=== PATIENT | female | born 1980 | race Caucasian/White ===

== ENCOUNTER 2023-05-23 16:18 | Emergency (ER) | payer MEDICAID ==
[~2023-05-23] VITALS: Ht 165.1 cm; Wt 59.1 kg
[2023-05-23 18:28] LABS: HCG SERUM QL NEGATIVE
[2023-05-23 18:43] LABS: ALBUMIN 3.8 G/DL (3.4-5.0); ANION GAP 13 (8-16); BLOOD UREA NITROGEN 10 MG/DL (7-18); BUN/CREATININE RATIO 16.7 (10.0-20.0); CHLORIDE 101 MMOL/L (99-107); ETHANOL 281 MG/DL (<10); GLUCOSE 87 MG/DL (70-104); SALICYLATE 1.4 MG/DL (4.0-20.0); SODIUM 138 MMOL/L (135-145); TOTAL CARBON DIOXIDE 23.8 MMOL/L (24-32); eCRCL 112 ML/MIN; eGFR > 90 ML/MIN
[2023-05-23 18:52] LABS: ACETAMINOPHEN < 2.0 UG/ML (10-30)
[2023-05-23 18:53] VITALS: TEMP 98.4
[2023-05-23] MEDS: normal saline 1000ML IV soln IVB ONE (18:53)
[2023-05-23 19:30] LABS: BASOPHILS # (AUTO) 0.1 X10'3 (0-0.2); BASOPHILS % (AUTO) 0.6 % (0-1); EOSINOPHILS # (AUTO) 0.1 X10'3 (0-0.9); EOSINOPHILS % (AUTO) 0.7 % (0-6); HEMATOCRIT 38.6 % (35.0-45.0); HEMOGLOBIN 13.2 g/dl (12.0-16.0); LYMPHOCYTES # (AUTO) 2.3 X10'3 (1.1-4.8); LYMPHOCYTES % (AUTO) 24.2 % (21-51); MEAN CORPUSCULAR HEMOGLOBIN 33.2 PG (27.0-31.0); MEAN CORPUSCULAR HGB CONC 34.1 g/dL (33.0-36.5); MEAN CORPUSCULAR VOLUME 97.2 FL (78-98); MEAN PLATELET VOLUME 8.6 FL (7.4-10.4); MONOCYTES # (AUTO) 0.3 X10'3 (0-0.9); MONOCYTES % (AUTO) 3.5 % (2-12); NEUTROPHILS # (AUTO) 6.9 X10'3 (1.8-7.7); PLATELET COUNT 272 X10'3 (140-440); RED BLOOD COUNT 3.97 X10'6 (4.20-5.60); RED CELL DISTRIBUTION WIDTH 15.1 % (11.5-14.5); WHITE BLOOD COUNT 9.7 X10'3 (4.5-11.0)
[2023-05-23 23:34] VITALS: BP 110/59; PULSE 78; RESP 16; O2SAT 100
== END 2023-05-24 01:17 | disposition home or self-care (01) ==
LOC: ER 16:19
DX: F10.129 Alcohol abuse with intoxication, unspecified (principal); Y90.9 Presence of alcohol in blood, level not specified
CPT/HCPCS: 36415; 70450; 71045; 80048; 80320; 80329; 82140; 82948; 84484; 84703; 85025; 93005; 96360; 99285; J7030

== ENCOUNTER 2023-06-01 03:52 | Emergency (ER) | payer MEDICAID ==
[~2023-06-01] VITALS: Ht 157.5 cm; Wt 59.1 kg
[2023-06-01] MEDS: thiamine 100mg/ml 2ml inj. IV ONE (08:31)
[2023-06-01] MEDS: normal saline 1000ML IV soln IVB ONE (08:31)
[2023-06-01 08:39] LABS: ANION GAP 14 (8-16); BLOOD UREA NITROGEN 7 MG/DL (7-18); BUN/CREATININE RATIO 16.3 (10.0-20.0); CALCIUM 8.4 MG/DL (8.5-10.1); CHLORIDE 98 MMOL/L (99-107); CREATININE 0.43 MG/DL (0.40-0.90); ETHANOL < 10 MG/DL (<10); GLUCOSE 77 MG/DL (70-104); POTASSIUM 3.7 MMOL/L (3.5-5.1); SODIUM 135 MMOL/L (135-145); TOTAL CARBON DIOXIDE 23.2 MMOL/L (24-32); eCRCL 138 ML/MIN; eGFR > 90 ML/MIN
[2023-06-01 10:49] LABS: URINE HCG NEGATIVE (NEG)
[2023-06-01 11:13] LABS: URINE AMPHETAMINE SCREEN NEGATIVE (Neg); URINE BARBITUATE SCREEN NEGATIVE (Neg); URINE BENZODIAZEPINES SCREEN NEGATIVE (Neg); URINE CANNABINOID SCREEN NEGATIVE (Neg); URINE COCAINE SCREEN NEGATIVE (Neg); URINE METHADONE SCREEN NEGATIVE (Neg); URINE OPIATE SCREEN NEGATIVE (Neg); URINE PHENCYCLIDINE SCREEN NEGATIVE (Neg)
[2023-06-01 11:15] LABS: BASOPHILS % (AUTO) 0.3 % (0-1); EOSINOPHILS % (AUTO) 0.2 % (0-6); HEMATOCRIT 33.7 % (35.0-45.0); HEMOGLOBIN 11.5 g/dl (12.0-16.0); LYMPHOCYTES # (AUTO) 0.7 X10'3 (1.1-4.8); LYMPHOCYTES % (AUTO) 9.5 % (21-51); MEAN CORPUSCULAR HEMOGLOBIN 32.9 PG (27.0-31.0); MEAN CORPUSCULAR HGB CONC 34.2 g/dL (33.0-36.5); MEAN CORPUSCULAR VOLUME 96.3 FL (78-98); MONOCYTES # (AUTO) 0.4 X10'3 (0-0.9); MONOCYTES % (AUTO) 6.5 % (2-12); NEUTROPHILS # (AUTO) 5.7 X10'3 (1.8-7.7); NEUTROPHILS % (AUTO) 83.5 % (42-75); PLATELET COUNT 126 X10'3 (140-440); RED CELL DISTRIBUTION WIDTH 14.4 % (11.5-14.5); WHITE BLOOD COUNT 6.9 X10'3 (4.5-11.0)
[2023-06-01 18:32] LABS: BILIRUBIN,URINE NEGATIVE (Neg); CLARITY,URINE SLIGHTLY CLOUDY (Clear); COLOR,URINE YELLOW (Yellow); GLUCOSE, URINE NEGATIVE (Neg); KETONES,URINE 15 mg/dl (Neg); LEUKOCYTE ESTERASE ,URINE NEGATIVE (Neg); NITRITES, URINE NEGATIVE (Neg); OCCULT BLOOD,URINE LARGE (Neg); PH,URINE 6.5 (4.8-8.0); PROTEIN,URINE NEGATIVE (Neg); UROBILINOGEN,URINE 0.2 E.U/dL (0.2-1.0)
[2023-06-01 18:35] LABS: UA COLLECTION TYPE CLN CATCH MIDSTREAM
[2023-06-01 18:40] LABS: SQUAMOUS EPITHELIAL CELL,UR MANY /LPF (FEW)
[2023-06-01 18:41] LABS: THYROID STIMULATING HORMONE 1.41 ulU/ml (0.34-4.50)
[2023-06-01 18:42] LABS: BACTERIA,URINE FEW /HPF (Neg)
[2023-06-01 18:43] LABS: RBC,URINE 0-2 /HPF (0-2)
[2023-06-01 18:44] LABS: WBC,URINE 0-4 /HPF (0-4)
[2023-06-01 19:51] VITALS: BP 126/68; PULSE 98; RESP 16; TEMP 97.8; O2SAT 98
== END 2023-06-01 19:57 ==
LOC: ER 03:53
DX: F20.9 Schizophrenia, unspecified (principal); Z20.822 Contact with and (suspected) exposure to COVID-19
CPT/HCPCS: 36415; 80048; 80305; 80320; 81001; 81025; 84443; 85025; 87811; 96361; 96374; 99285; J3411; J7030

== ENCOUNTER 2023-12-04 12:07 | Emergency (ER) | payer MEDICAID ==
[~2023-12-04] VITALS: Ht 157.5 cm; Wt 68.2 kg
[2023-12-04 13:35] LABS: URINE HCG NEGATIVE (NEG)
[2023-12-04 13:36] LABS: BILIRUBIN,URINE NEGATIVE (Neg); COLOR,URINE YELLOW (Yellow); GLUCOSE, URINE NEGATIVE (Neg); KETONES,URINE 15 mg/dl (Neg); LEUKOCYTE ESTERASE ,URINE TRACE (Neg); NITRITES, URINE NEGATIVE (Neg); OCCULT BLOOD,URINE NEGATIVE (Neg); PH,URINE 6.5 (4.8-8.0); PROTEIN,URINE NEGATIVE (Neg); UROBILINOGEN,URINE 0.2 E.U/dL (0.2-1.0)
[2023-12-04 13:47] LABS: URINE AMPHETAMINE SCREEN NEGATIVE (Neg); URINE BARBITUATE SCREEN NEGATIVE (Neg); URINE BENZODIAZEPINES SCREEN NEGATIVE (Neg); URINE CANNABINOID SCREEN NEGATIVE (Neg); URINE COCAINE SCREEN NEGATIVE (Neg); URINE METHADONE SCREEN NEGATIVE (Neg); URINE OPIATE SCREEN NEGATIVE (Neg); URINE PHENCYCLIDINE SCREEN NEGATIVE (Neg)
[2023-12-04 13:48] LABS: CLARITY,URINE SLIGHTLY CLOUDY (Clear); UA COLLECTION TYPE CLN CATCH MIDSTREAM
[2023-12-04 13:54] LABS: RBC,URINE 0-2 /HPF (0-2)
[2023-12-04 13:55] LABS: BACTERIA,URINE 1+ /HPF (Neg); SQUAMOUS EPITHELIAL CELL,UR MANY /LPF (FEW)
[2023-12-04 15:02] LABS: BASOPHILS % (AUTO) 0.3 % (0-1); EOSINOPHILS % (AUTO) 0.3 % (0-6); HEMATOCRIT 41.1 % (35.0-45.0); LYMPHOCYTES # (AUTO) 1.5 X10'3 (1.1-4.8); LYMPHOCYTES % (AUTO) 15.4 % (21-51); MEAN CORPUSCULAR HEMOGLOBIN 32.8 PG (27.0-31.0); MEAN CORPUSCULAR HGB CONC 34.1 g/dL (33.0-36.5); MEAN CORPUSCULAR VOLUME 96.4 FL (78-98); MEAN PLATELET VOLUME 8.6 FL (7.4-10.4); MONOCYTES # (AUTO) 0.7 X10'3 (0-0.9); MONOCYTES % (AUTO) 7.2 % (2-12); NEUTROPHILS # (AUTO) 7.7 X10'3 (1.8-7.7); NEUTROPHILS % (AUTO) 76.8 % (42-75); PLATELET COUNT 204 X10'3 (140-440); RED BLOOD COUNT 4.27 X10'6 (4.20-5.60); RED CELL DISTRIBUTION WIDTH 12.6 % (11.5-14.5)
[2023-12-04 15:24] LABS: ANION GAP 7 (8-16); BLOOD UREA NITROGEN 5 MG/DL (7-18); BUN/CREATININE RATIO 8.8 (10.0-20.0); CALCIUM 8.7 MG/DL (8.5-10.1); CHLORIDE 103 MMOL/L (99-107); CREATININE 0.57 MG/DL (0.40-0.90); ETHANOL < 10 MG/DL (<10); GLUCOSE 93 MG/DL (70-104); POTASSIUM 4.1 MMOL/L (3.5-5.1); SODIUM 138 MMOL/L (135-145); THYROID STIMULATING HORMONE 1.04 ulU/ml (0.34-4.50); TOTAL CARBON DIOXIDE 27.7 MMOL/L (24-32); eCRCL 103 ML/MIN; eGFR > 90 ML/MIN
[2023-12-04 17:53] VITALS: BP 141/46; PULSE 63; RESP 16; TEMP 97; O2SAT 96
== END 2023-12-04 17:56 | disposition home or self-care (01) ==
LOC: ER 12:08
DX: R45.851 Suicidal ideations (principal); Z20.822 Contact with and (suspected) exposure to COVID-19; F20.9 Schizophrenia, unspecified
CPT/HCPCS: 36415; 80048; 80305; 80320; 81001; 81025; 84443; 85025; 87811; 99283; 99285

== ENCOUNTER 2024-01-25 15:15 | Inpatient (IN) | payer MEDICAID ==
[~2024-01-25] VITALS: Ht 157.5 cm; Wt 69.8 kg
[2024-01-25 19:00] VITALS: RESP 18; O2SAT 96
[2024-01-25 20:00] VITALS: BP 106/64; PULSE 99; RESP 18; TEMP 98.1; O2SAT 96
[2024-01-25] MEDS: PALIPERIDONE 3 MG TAB.ER.24 PO SCH (20:24)
[2024-01-25] MEDS: traZODone 150mg tablet PO SCH (20:24)
[2024-01-25] MEDS ORDERED: mag hydrox/Alum hydrox/simeth 30ml oral suspension PO PRN (20:55)
[2024-01-25] MEDS ORDERED: magnesium hydroxide 30ml (MOM) UD suspension PO PRN (20:55)
[2024-01-25] MEDS ORDERED: acetaminophen 325mg tablet PO PRN (20:55)
[2024-01-25] MEDS ORDERED: loperamide 2mg capsule PO PRN (20:55)
[2024-01-26] MEDS: thiamine 100mg tablet PO SCH (07:23)
[2024-01-26] MEDS: gabapentin 100mg capsule PO SCH (07:23)
[2024-01-26] MEDS: multivitamins, therapeutics tablet PO SCH (07:23)
[2024-01-26] MEDS: acetaminophen 325mg tablet PO PRN (07:24)
[2024-01-26 07:30] VITALS: BP 115/70; PULSE 81; RESP 16; TEMP 98.4; O2SAT 96
[2024-01-26 07:38] VITALS: RESP 18; O2SAT 96
[2024-01-26 08:38] LABS: HEMOGLOBIN A1C 4.9 % (4.5-6.2)
[2024-01-26 08:39] LABS: THYROID STIMULATING HORMONE 0.9 ulU/ml (0.34-4.50)
[2024-01-26] MEDS: gabapentin 300mg capsule PO SCH (13:37)
[2024-01-26 19:00] VITALS: RESP 17; O2SAT 100
[2024-01-26 20:00] VITALS: BP 144/60; PULSE 83; RESP 17; TEMP 98.6; O2SAT 100
[2024-01-26] MEDS: traZODone 150mg tablet PO SCH (20:15)
[2024-01-27 07:23] VITALS: BP 104/57; PULSE 84; RESP 12; TEMP 98; O2SAT 96
[2024-01-27 07:51] VITALS: RESP 12; O2SAT 96
[2024-01-27] MEDS: ESCITALOPRAM 10 mg tablet 10 MG TABLET PO SCH (07:54)
[2024-01-27 19:00] VITALS: RESP 20; O2SAT 96
[2024-01-27 20:00] VITALS: BP 99/52; PULSE 81; RESP 20; TEMP 98.3; O2SAT 96
[2024-01-28 07:20] VITALS: BP 108/56; PULSE 91; RESP 14; TEMP 97.9; O2SAT 95
[2024-01-28 07:59] VITALS: RESP 14; O2SAT 95
[2024-01-28] MEDS: naltrexone 50mg tablet PO SCH (08:03)
[2024-01-28 20:00] VITALS: BP 108/69; PULSE 84; RESP 16; TEMP 97.6; O2SAT 97
[2024-01-29 07:00] VITALS: BP 109/69; PULSE 100; RESP 16; TEMP 99; O2SAT 98
[2024-01-29 19:00] VITALS: BP 112/65; PULSE 68; RESP 16; TEMP 98.5; O2SAT 97
[2024-01-30 07:00] VITALS: BP 94/54; PULSE 69; RESP 16; TEMP 98.2; O2SAT 94
[2024-01-30 19:00] VITALS: RESP 17; O2SAT 96
[2024-01-30 20:00] VITALS: BP 114/67; PULSE 84; RESP 16; TEMP 98; O2SAT 96
[2024-01-31 01:33] VITALS: BP 114/67; PULSE 84; RESP 17; TEMP 98; O2SAT 96
[2024-01-31 07:00] VITALS: RESP 18; O2SAT 99
[2024-01-31] MEDS: nicotine 14mg patch - 24hr TD SCH (07:36)
[2024-01-31 08:00] VITALS: BP 102/56; PULSE 101; RESP 18; TEMP 98.6; O2SAT 99
[2024-01-31] MEDS: NICOTINE POLACRILEX 2 MG LOZENGE BC PRN (11:52)
[2024-01-31 19:00] VITALS: RESP 16; O2SAT 96
[2024-01-31 20:00] VITALS: BP 107/55; PULSE 91; RESP 16; TEMP 98.4; O2SAT 96
[2024-02-01 07:00] VITALS: RESP 20; O2SAT 97
[2024-02-01 08:00] VITALS: BP 102/61; PULSE 99; RESP 20; TEMP 98.4; O2SAT 97
[2024-02-01 19:00] VITALS: RESP 16; O2SAT 97
[2024-02-01 19:35] VITALS: BP 107/64; PULSE 89; RESP 16; TEMP 98.6; O2SAT 97
[2024-02-02 07:00] VITALS: RESP 12; O2SAT 97
[2024-02-02] MEDS: BUPROPION HCL 150MG XL 24 HR 150 MG TAB PO SCH (07:44)
[2024-02-02 08:00] VITALS: BP 103/53; PULSE 85; RESP 12; TEMP 97.7; O2SAT 97
[2024-02-02 08:51] LABS: BASOPHILS % (AUTO) 0.5 % (0-1); EOSINOPHILS # (AUTO) 0.2 X10'3 (0-0.9); EOSINOPHILS % (AUTO) 4.1 % (0-6); HEMATOCRIT 39.1 % (35.0-45.0); HEMOGLOBIN 13.4 g/dl (12.0-16.0); LYMPHOCYTES # (AUTO) 1.6 X10'3 (1.1-4.8); LYMPHOCYTES % (AUTO) 29.7 % (21-51); MEAN CORPUSCULAR HEMOGLOBIN 33.8 PG (27.0-31.0); MEAN CORPUSCULAR HGB CONC 34.2 g/dL (33.0-36.5); MEAN CORPUSCULAR VOLUME 98.8 FL (78-98); MEAN PLATELET VOLUME 8.5 FL (7.4-10.4); MONOCYTES # (AUTO) 0.6 X10'3 (0-0.9); MONOCYTES % (AUTO) 11.6 % (2-12); NEUTROPHILS # (AUTO) 2.9 X10'3 (1.8-7.7); NEUTROPHILS % (AUTO) 54.1 % (42-75); PLATELET COUNT 160 X10'3 (140-440); RED BLOOD COUNT 3.96 X10'6 (4.20-5.60); RED CELL DISTRIBUTION WIDTH 12.9 % (11.5-14.5); WHITE BLOOD COUNT 5.4 X10'3 (4.5-11.0)
[2024-02-02 09:07] LABS: ALANINE AMINOTRANSFERASE 236 U/L (12-78); ALBUMIN 3.5 G/DL (3.4-5.0); ALKALINE PHOSPHATASE 81 IU/L (46-116); ANION GAP 7 (8-16); ASPARTATE AMINO TRANSFERASE 77 U/L (10-37); BILIRUBIN,TOTAL 0.5 MG/DL (0.1-1.0); BLOOD UREA NITROGEN 14 MG/DL (7-18); BUN/CREATININE RATIO 14.9 (10.0-20.0); CALCIUM 8.4 MG/DL (8.5-10.1); CHLORIDE 105 MMOL/L (99-107); CREATININE 0.94 MG/DL (0.40-0.90); GLUCOSE 190 MG/DL (70-104); POTASSIUM 4.3 MMOL/L (3.5-5.1); SODIUM 138 MMOL/L (135-145); TOTAL CARBON DIOXIDE 25.8 MMOL/L (24-32); eCRCL 62 ML/MIN; eGFR 66 ML/MIN
[2024-02-02 19:00] VITALS: RESP 16; O2SAT 95
[2024-02-02 20:00] VITALS: PULSE 95; RESP 16; TEMP 97.7
[2024-02-03 07:00] VITALS: RESP 16; O2SAT 97
[2024-02-03 08:00] VITALS: BP 105/57; PULSE 88; RESP 16; TEMP 98.4; O2SAT 97
[2024-02-03 19:00] VITALS: RESP 16; O2SAT 98
[2024-02-03 20:00] VITALS: BP 106/62; PULSE 75; RESP 16; TEMP 98.7; O2SAT 98
[2024-02-03] MEDS: gabapentin 100mg capsule PO SCH (20:22)
[2024-02-04 07:00] VITALS: RESP 12; O2SAT 97
[2024-02-04 08:00] VITALS: BP 87/45; PULSE 110; RESP 14; TEMP 98.8; O2SAT 97
[2024-02-04] MEDS: BUPROPION HCL 150MG XL 24 HR 150 MG TAB PO SCH (08:32)
[2024-02-04 19:00] VITALS: RESP 16; O2SAT 99
[2024-02-04 20:00] VITALS: BP 98/60; PULSE 90; RESP 16; TEMP 97.8; O2SAT 99
[2024-02-05 07:00] VITALS: RESP 12; O2SAT 97
[2024-02-05 08:00] VITALS: BP 98/64; PULSE 86; RESP 20; TEMP 97.8; O2SAT 96
[2024-02-05 08:43] VITALS: RESP 12; O2SAT 97
[2024-02-05 19:00] VITALS: RESP 19; O2SAT 96
[2024-02-05 20:00] VITALS: BP 97/54; PULSE 82; RESP 19; TEMP 98.7; O2SAT 96
[2024-02-06 07:30] VITALS: BP 90/50; PULSE 90; RESP 16; TEMP 98.1; O2SAT 95
[2024-02-06] MEDS ORDERED: TRAZ150T78 PO (12:06)
[2024-02-06] MEDS ORDERED: PALI3TAB5 PO (12:06)
[2024-02-06] MEDS ORDERED: BUPR-94 PO (12:06)
[2024-02-06] MEDS ORDERED: GABA-530 PO (12:06)
[2024-02-06] MEDS ORDERED: NALT50TA5 PO (12:06)
== END 2024-02-06 14:28 | disposition home or self-care (01) | DRG 750 ==
LOC: ADULT MH 15:15
PROVIDERS: ADMIT Psychiatry & Neurology Psychiatry; ATTEND Psychiatry & Neurology Psychiatry
PROC: GZHZZZZ Group Psychotherapy (ICD-10-PCS; principal; 2024-01-26)
DX: F20.0 Paranoid schizophrenia (principal); Z91.148 Patient's other noncompliance with medication regimen for other reason; R45.851 Suicidal ideations; R56.9 Unspecified convulsions; F10.20 Alcohol dependence, uncomplicated; Y90.9 Presence of alcohol in blood, level not specified; G89.4 Chronic pain syndrome; I10 Essential (primary) hypertension; Z81.8 Family history of other mental and behavioral disorders; Z86.73 Personal history of transient ischemic attack (TIA), and cerebral infarction without residual deficits; Z79.899 Other long term (current) drug therapy
CPT/HCPCS: 36415; 80053; 83036; 84443; 85025; 87081

== ENCOUNTER 2024-11-23 09:38 | Emergency (ER) | payer MEDICAID ==
[~2024-11-23] VITALS: Ht 157.5 cm; Wt 85.9 kg
[~2024-11-23 09:38] MED LIST: BUPR-94 PO; GABA-530 PO; NALT50TA5 PO; PALI3TAB5 PO; TRAZ150T78 PO
[2024-11-23 09:51] VITALS: BP 116/88; PULSE 98; RESP 18; O2SAT 97
--- NOTE | 2024-11-23 10:16 | Physician Documentation ---
History of Present Illness ~ Chief Complaint: Eye Pain Stated Complaint: MULTIPLE MED COMPLAINTS Time Seen by MD: 10:05 Source: patient Exam Limitations: other HPI 44-year-old female with complaints of eye pain x4 months but experiencing a headache she states she does not get headaches often took Advil which she states helped slightly also concerned for tics and potentially bugs the angela into the skin. Medication Reconciliation Allergies: Coded Allergies: No Known Allergies (Unverified , 11/23/24) Scheduled Bupropion Hcl (Wellbutrin Xl), 300 MG PO DAILY Gabapentin (Gabapentin), 100 MG PO TID Naltrexone Hcl (Naltrexone Hcl), 50 MG PO DAILY Paliperidone (Paliperidone ER), 6 MG PO HS Trazodone Hcl (Trazodone Hcl), 300 MG PO HS@20 Past Medical History Past Medical History: Schizophrenia Past Surgical History: noncontributory Patient History: FH: schizophrenia FATHER Alcohol Use: Alcoholic Lives In: Home Review of Systems All Other Systems at this time: Reviewed and Negative Neurological: Reports: see HPI Physical Exam Vital Signs: RN Vital Signs have been reviewed: Yes, Temperature: 97.7, Heart Rate: 98, Respiratory Rate: 18, BP: 116/88, Pulse Oximetry: 97, Weight: 85.900 Oxygen Flow Rate: 0 Physical Exam General: Alert, no apparent distress. HEENT: moist mucous membranes. Normocephalic atraumatic PERRLA SEOM Neck: Full range of motion. Respiratory: No respiratory distress speaking in full sentences Chest: No accessory muscle use. Cardiovascular: Appears well perfused Neurologic: Oriented x4. Difficult to assess. Psychiatric: Flat affect pauses between answering questions Skin: Normal color, warm and dry. No edema, no ecchymosis. Progress Results/Orders Results/Orders Orders - NIRALI JENKINS ANGER CONTROL COUNSELOR Ct Head (11/23/24 10:51) Completed Orders - NIRALI JENKINS ANGER CONTROL COUNSELOR Ct Head (11/23/24 10:51) Hcg, Ur Ql (11/23/24 10:11) Vital Signs 11/23/24 09:51 Temp 97.7 Pulse 98 Resp 18 B/P (MAP) 116/88 Pulse Ox 97 O2 Flow Rate 0 Laboratory Tests Test 11/23/24 10:42 Urine HCG, Qualitative Negative EKG/XRAY/CT/US/VASC/MRI CT : Impression CT CT HEAD INDICATION: Headache eye pain COMPARISON: CT CT HEAD on DOS: 05/23/23 TECHNIQUE: CT of the head without intravenous contrast. RADIATION DOSE: CTDIvol: 58 mGy, DLP: 934 mGy*cm FINDINGS: There is no evidence of acute intracranial hemorrhage, extra-axial collection, mass effect, midline shift, herniation or hydrocephalus. The ventricles, sulci and cisterns are age appropriate. The little-white differentiation is intact. The visualized paranasal sinuses and mastoid air cells are clear. The surrounding soft tissues and osseous structures are unremarkable. IMPRESSION: 1. No evidence of acute intracranial hemorrhage, mass effect or hydrocephalus. Medical Decision Making Findings Patient has history of schizophrenia CT of head to evaluate due to her flat affect and unknown baseline. Patient states I painful for months and headache starting today or yesterday. Advil did help. CT scan was unremarkable for any significant findings given medications for migraines as eye pain and headache could be connected differentially. Patient will follow up with primary care Departure Time of Disposition: 11:23 Disposition: HOME / SELF CARE / HOMELESS Impression: Primary Impression: Migraine aura, persistent Condition: Stable Discharge Instructions: Migraine Headache, [id number] Additional Instructions: Patient has prescribed for headache stay well hydrated follow up with primary care in 1 week or sooner Referrals: NO PRIMARY CARE PROVIDER (PCP) Prescriptions Sumatriptan Succinate (Sumatriptan Succinate) 100 Mg Tablet 1 TAB PO UD for headache for 30 Days, #9 TAB 0 Refills may repeat in 2 hours; do not exceed 200 mg in 24 hours Prov: NIRALI JENKINS NP 11/23/24 Education Educated: Patient Educated regarding: diagnosis, treatment, need for follow up Signature Scribe Signature: No scribe Attestation: The note accurately reflects work and decisions made by me.Nirali Jenkins - SELENA 11/23/24 10:15 NIRALI JENKINS NP Nov 23, 2024 10:16
[2024-11-23 11:01] LABS: URINE HCG NEGATIVE (NEG)
--- NOTE | 2024-11-23 11:06 | RADIOLOGY REPORT ---
CT CT HEAD INDICATION: Headache eye pain COMPARISON: CT CT HEAD on DOS: 05/23/23 TECHNIQUE: CT of the head without intravenous contrast. RADIATION DOSE: CTDIvol: 58 mGy, DLP: 934 mGy*cm FINDINGS: There is no evidence of acute intracranial hemorrhage, extra-axial collection, mass effect, midline shift, herniation or hydrocephalus. The ventricles, sulci and cisterns are age appropriate. The little-white differentiation is intact. The visualized paranasal sinuses and mastoid air cells are clear. The surrounding soft tissues and osseous structures are unremarkable. IMPRESSION: 1. No evidence of acute intracranial hemorrhage, mass effect or hydrocephalus.
[2024-11-23] MEDS ORDERED: SUMA100T16 PO (11:25)
[2024-11-23 11:39] VITALS: TEMP 97.7
== END 2024-11-23 11:43 | disposition home or self-care (01) ==
LOC: ER 09:38
DX: G43.509 Persistent migraine aura without cerebral infarction, not intractable, without status migrainosus (principal); F20.9 Schizophrenia, unspecified
CPT/HCPCS: 70450; 81025; 99284

== ENCOUNTER 2025-01-13 11:11 | Emergency (ER) | payer MEDICAID ==
[~2025-01-13] VITALS: Ht 157.5 cm; Wt 73.0 kg
[~2025-01-13 11:11] MED LIST changes: +SUMA100T16 PO
[2025-01-13 11:14] VITALS: TEMP 97.1
[2025-01-13 11:26] VITALS: BP 113/68; PULSE 84; RESP 18; O2SAT 99
[2025-01-13] MEDS: ibuprofen tablet 400 MG TABLET PO ONE (11:34)
--- NOTE | 2025-01-13 11:44 | Physician Documentation ---
History of Present Illness ~ Chief Complaint: Foot pain Stated Complaint: FOOT PAIN Time Seen by MD: 11:24 Primary Medical Doctor: NONE HPI 44-year-old female brought in by ambulance for evaluation of bilateral foot pain. Patient believes he may have injuries to both feet because she walks a lot and wears a heavy backpack. There was no gross deformity. She has reported tenderness over the bilateral mid feet. No abrasions, contusions or lacerations noted. No skin infection noted. Tetanus witin 5 years: No Medication Reconciliation Allergies: Coded Allergies: No Known Allergies (Unverified , 01/13/25) Scheduled Bupropion Hcl (Wellbutrin Xl), 300 MG PO DAILY Gabapentin (Gabapentin), 100 MG PO TID Naltrexone Hcl (Naltrexone Hcl), 50 MG PO DAILY Paliperidone (Paliperidone ER), 6 MG PO HS Sumatriptan Succinate (Sumatriptan Succinate), 1 TAB PO UD Trazodone Hcl (Trazodone Hcl), 300 MG PO HS@20 Past Medical History Past Medical History: Schizophrenia Past Surgical History: noncontributory Patient History: FH: schizophrenia FATHER Alcohol Use: Alcoholic Lives In: Home Review of Systems All Other Systems at this time: Reviewed and Negative Constitutional: Reports: see HPI Physical Exam Vital Signs: RN Vital Signs have been reviewed: Yes, Temperature: 97.1, Source: Temporal, Heart Rate: 84, Respiratory Rate: 18, BP: 113/68, Pulse Oximetry: 99, Weight: 73.000 Oxygen Flow Rate: 0 General Appearance: alert, WD/WN, no apparent distress General Appearance Blunted affect EENT: PERRL/EOMI Respiratory: no respiratory distress Cardiovascular: normal peripheral pulses Gastrointestinal: non-tender Legs: normal inspection Knees: normal inspection Feet: normal inspection, pain, soft tissue tenderness Digit: normal inspection Nail: normal inspection Nail Bed: normal inspection Distal Function: no motor deficit Skin: normal color, warm/dry Progress Results/Orders Results/Orders Orders - MILO PARIS Foot, Complete (3vw Min) (01/13/25 ) Completed Orders - MILO PARIS Ibuprofen Tablet (Motrin Tablet) (01/13/25 11:25) Foot, Complete (3vw Min) (01/13/25 ) Ibuprofen Tablet (Motrin Tablet) (01/13/25 11:30) Vital Signs 01/13/25 01/13/25 11:14 11:26 Temp 97.1 Pulse 88 84 Resp 18 18 B/P (MAP) 101/57 113/68 (83) Pulse Ox 97 99 O2 Flow Rate 0 0 Medical Decision Making Additional information obtaine: N/A Findings 44-year-old female ride by ambulance for evaluation of bilateral foot pain without related trauma. X-ray imaging obtained in the emergency department preliminary without fracture or dislocation patient provided reassurance and advised to wear well fitting shoes. She received ibuprofen in the emergency department. Safely discharged to follow up with the primary care physician. X- rays reassuring for no acute fracture or dislocation. General Diff Dx:Considerations: Include: Abrasion, Contusion, Fracture, Hematoma, Laceration, Malunion, Neurovascular injury, Open fracture, Sprain, Ulcer, Other Knee Diff Dx:Considerations: Include: Other Ankle Diff Dx:Considerations: Include: Other (Contributory noncontributory) Foot Diff Dx:Considerations: Include: Abrasion, Arthritis, Cellulitis, Contusion, Dislocation, DJD, Fracture-metatarsal, Fracture-phalynx, Fracture- tarsal, Gout, Hematoma, Ingrown toenail, Laceration, Malunion, Neurovascular injury, Open fracture, Paronychia, Puncture, Rheumatoid, Sprain, Septic, Subungual hematoma, Ulcer, Other Toe Diff Dx:Considerations: Include: Other (Noncontributory) Departure Disposition: 01 HOME / SELF CARE / HOMELESS Impression: Primary Impression: Bilateral foot pain Condition: Stable Additional Instructions: Your x-rays obtained today in the emergency department reassuring for no acute f racture. Please wear a well fitting shoes and limit your activity while have a discomfort. Referrals: NO PRIMARY CARE PROVIDER (PCP) Prescriptions Ibuprofen* (Motrin*) 400 Mg Tablet 1 TAB PO Q8H for pain or fever for 10 Days, #30 TAB Prov: MILO PARIS 01/13/25 Education Educated: Patient Educated regarding: diagnosis, treatment, prognosis, need for follow up Signature Scribe Signature: . Attestation: MILO CASTILLO Jan 13, 2025 11:44
[2025-01-13] MEDS ORDERED: IBUP-1984 PO (11:59)
--- NOTE | 2025-01-13 12:16 | RADIOLOGY REPORT ---
EXAM: DI FOOT, COMPLETE (3VW MIN) INDICATION: PAIN BILAT TECHNIQUE: 3 views of the bilateral feet COMPARISON: None FINDINGS/IMPRESSION: No radiographic evidence of an acute osseous abnormality. There is no acute fracture, osseous malalignment, or aggressive focal osseous lesion.
== END 2025-01-13 12:29 | disposition home or self-care (01) ==
LOC: ER 11:11
DX: M79.671 Pain in right foot (principal); M79.672 Pain in left foot; F20.9 Schizophrenia, unspecified; F10.90 Alcohol use, unspecified, uncomplicated; Z79.899 Other long term (current) drug therapy; Y90.9 Presence of alcohol in blood, level not specified
CPT/HCPCS: 73630; 99283